=== PATIENT | male | born 1990 | race American Indian/Alaskan Native ===

== ENCOUNTER 2017-02-18 21:18 | Emergency (ER) | payer SELFPAY ==
[2017-02-18 21:52] LABS: Basophils % (Auto) 1.2 % (0.0-1.8); Eosinophils % (Auto) 2.4 % (0.0-4.3); Hematocrit 38.7 % (35.5-45.6); Hemoglobin 12.8 gm/dl (11.8-15.2); Mean Corpuscular HGB Conc 33 % (32-34); Mean Corpuscular Hemoglobin 30 pg (28-32); Mean Corpuscular Volume 90 fl (84-94); Platelet Count 239 K/mm3 (140-440); Red Blood Count 4.32 M/mm3 (3.65-5.03); Red Cell Distribution Width 14.6 % (13.2-15.2); White Blood Count 5.8 K/mm3 (4.5-11.0)
[2017-02-18 22:14] LABS: Alanine Aminotransferase 10 units/L (7-56); Albumin 4.3 g/dL (3.9-5); Albumin/Globulin Ratio 1.3 %; Alkaline Phosphatase 53 units/L (35-129); Anion Gap 17 mmol/L; Blood Urea Nitrogen 10 mg/dL (9-20); Calcium 8.6 mg/dL (8.4-10.2); Carbon Dioxide 25 mmol/L (22-30); Chloride 102.1 mmol/L (98-107); Glucose 89 mg/dL (75-100); Lipase 31 units/L (13-60); Potassium 3.8 mmol/L (3.6-5.0); Sodium 140 mmol/L (137-145); Total Protein 7.5 g/dL (6.3-8.2)
[2017-02-19 00:35] LABS: Bilirubin,Urine NEG (Negative); Blood,Urine NEG (Negative); Ketones,Urine NEG (Negative); Leukocyte Esterase,Urine TR (Negative); Mucus,Urine FEW /HPF; Nitrite,Urine NEG (Negative); Protein,Urine <15 mg/dL mg/dL (Negative)
[2017-02-19 01:19] VITALS: BP 115/67
[2017-02-19] MEDS ORDERED: TYLENOL PO ONE (01:22)
[2017-02-19] MEDS ORDERED: TYLENOL ONE (01:22)
--- NOTE | 2017-02-19 01:52 | Emergency Department Report ---
ED Abdominal Pain HPI - General Chief Complaint: Abdominal Pain Stated Complaint: ABD PAIN, HEADACHE Time Seen by Provider: 02/19/17 01:26 Source: patient Mode of arrival: Ambulatory Limitations: No Limitations - History of Present Illness Initial Comments: She comes into the ER today with complaints of having some abdominal cramping earlier today after eating what he believes was some bad ham. Patient denies any vomiting, diarrhea but does state he was nauseous and had some cramping in his abdomen. The patient states that the pain has subsided but he still feels a little cramping going on. Patient also requesting for refill of less acyclovir for his herpes. Patient states that he was taking the medicine on a daily basis to suppress the virus. Patient denies any outbreaks or complaints of herpes at this time. Severity scale (0 -10): 4 Associated Symptoms: nausea. denies: vomiting, diarrhea, fever, chills, dysuria , melena, hematuria - Related Data Previous Rx's Medication Instructions Recorded Last Taken Type Sennosides/Docusate Sodium [Stool 1 each PO BID #20 tablet 01/17/14 Unknown Rx Softener Tablet] Hydrocortisone 1% [Hydrocortisone 1 applicatio TP TID #1 tube 06/16/14 Unknown Rx 1% CREAM] Acyclovir [Zovirax Tab] 400 mg PO BID #60 tablet 02/19/17 Unknown Rx Dicyclomine [Bentyl] 10 mg PO QID #12 capsule 02/19/17 Unknown Rx Allergies Allergy/AdvReac Type Severity Reaction Status Date / Time No Known Allergies Allergy Verified 05/23/14 16:12 ED Review of Systems ROS: Stated complaint: ABD PAIN, HEADACHE Other details as noted in HPI Constitutional: denies: chills, fever Eyes: denies: eye pain, eye discharge, vision change ENT: denies: ear pain, throat pain Respiratory: denies: cough, shortness of breath, wheezing Cardiovascular: denies: chest pain, palpitations Endocrine: no symptoms reported Gastrointestinal: abdominal pain, nausea. denies: vomiting, diarrhea, constipation, hematemesis Genitourinary: denies: urgency, dysuria Musculoskeletal: denies: back pain, joint swelling, arthralgia Skin: denies: rash, lesions Neurological: denies: headache, weakness, paresthesias Psychiatric: denies: anxiety, depression Hematological/Lymphatic: denies: easy bleeding, easy bruising ED Past Medical Hx - Past Medical History Previous Medical History?: No Hx Hypertension: No Hx CVA: No Hx Heart Attack/AMI: No Hx Congestive Heart Failure: No Hx Diabetes: No Hx Deep Vein Thrombosis: No Hx Pulmonary Embolism: No Hx GERD: No Hx Liver Disease: No Hx Renal Disease: No Hx of Cancer: No Hx Sickle Cell Disease: No Hx Arthritis: No Hx Headaches / Migraines: No Hx Seizures: No Hx Kidney Stones: No Hx Psychiatric Treatment: No Hx Asthma: No Hx COPD: No Hx Tuberculosis: No Hx Dementia: No Hx HIV: No Additional medical history: hemorrhoid - Surgical History Past Surgical History?: No Hx Coronary Stent: No Hx Open Heart Surgery: No Hx Pacemaker: No Hx Internal Defibrillator: No Hx Cholecystectomy: No Hx Appendectomy: No Hx Breast Surgery: No Additional Surgical History: hemorrhoidectomy - Social History Smoking Status: Current Every Day Smoker Substance Use Type: None - Medications Home Medications: Home Medications Medication Instructions Recorded Confirmed Last Taken Type Sennosides/Docusate Sodium [Stool 1 each PO BID #20 tablet 01/17/14 Unknown Rx Softener Tablet] Hydrocortisone 1% [Hydrocortisone 1 applicatio TP TID #1 tube 06/16/14 Unknown Rx 1% CREAM] Acyclovir [Zovirax Tab] 400 mg PO BID #60 tablet 02/19/17 Unknown Rx Dicyclomine [Bentyl] 10 mg PO QID #12 capsule 02/19/17 Unknown Rx ED Physical Exam - General Limitations: No Limitations General appearance: alert, in no apparent distress - Head Head exam: Present: atraumatic, normocephalic - Eye Eye exam: Present: normal appearance - ENT ENT exam: Present: normal exam, normal orophraynx, mucous membranes moist, normal external ear exam - Neck Neck exam: Present: normal inspection. Absent: lymphadenopathy - Respiratory Respiratory exam: Present: normal lung sounds bilaterally. Absent: respiratory distress - Cardiovascular Cardiovascular Exam: Present: regular rate, normal rhythm. Absent: systolic murmur, diastolic murmur, rubs, gallop - GI/Abdominal GI/Abdominal exam: Present: soft, normal bowel sounds. Absent: distended, tenderness, guarding, rebound, rigid - Rectal Rectal exam: Present: deferred - exam: Present: normal inspection - Extremities Exam Extremities exam: Present: normal inspection - Back Exam Back exam: Present: normal inspection - Neurological Exam Neurological exam: Present: alert, oriented X3 - Psychiatric Psychiatric exam: Present: normal affect, normal mood - Skin Skin exam: Present: warm, dry, intact, normal color. Absent: rash ED Course Vital Signs 02/18/17 02/19/17 02/19/17 21:23 00:54 01:17 Temperature 98.0 F 97.9 F Pulse Rate 68 60 59 L Respiratory 18 14 18 Rate Blood Pressure 120/70 112/66 Blood Pressure 115/67 [Right] O2 Sat by Pulse 99 100 98 Oximetry ED Medical Decision Making - Lab Data Result diagrams: 02/18/17 21:37 02/18/17 21:37 - Medical Decision Making History is nontoxic and hemodynamically stable. The patient has a benign abdominal exam during ER visit today. Per history, I do believe patient may be had a little bout of upset stomach following eating some food that did not agree with him. I'll prescribe patient some medication to help stop any cramping if symptoms persist. Also refill patient's acyclovir for herpes suppression. Patient is in agreement with treatment plan and patient is stable for discharge. Critical care attestation.: If time is entered above; I have spent that time in minutes in the direct care of this critically ill patient, excluding procedure time. ED Disposition Clinical Impression: Abdominal cramping, Herpes Disposition: DISCHARGED TO HOME OR SELFCARE Is pt being admited?: No Does the pt Need Aspirin: No Condition: Good Instructions: Genital Herpes Simplex (ED), Gastroenteritis (ED) Prescriptions: Acyclovir [Zovirax Tab] 400 mg PO BID #60 tablet Dicyclomine [Bentyl] 10 mg PO QID #12 capsule Referrals: PRIMARY CARE, [Primary Care Provider] - 3-5 Days Forms: Work/School Release Form(ED) Time of Disposition: 01:56
== END 2017-02-19 02:03 | disposition home or self-care (01) ==
LOC: ED 21:18
DX: R10.9 Unspecified abdominal pain (principal); B00.9 Herpesviral infection, unspecified; F17.200 Nicotine dependence, unspecified, uncomplicated
CPT/HCPCS: 36415; 80053; 81001; 83690; 85025; 99283